=== PATIENT | male | born 1980 | race Caucasian/White ===

== ENCOUNTER 2022-12-17 12:56 | Emergency (ER) | payer SELFPAY ==
[2022-12-17] MEDS ORDERED: SEROQUEL50 MG PO (13:25)
[2022-12-17] MEDS ORDERED: SEROQUEL 1100 MG/TAB PO (13:25)
[2022-12-17 13:40] LABS: BASO # 0.05 K/mm3 (0.02-0.10); EOS # 0.09 K/mm3 (0.04-0.40); EOS % 1.4 % (0.0-4.0); HEMATOCRIT 45.8 % (42.0-52.0); HEMOGLOBIN 15.6 g/dL (13.5-18.0); MEAN CELL VOLUME 90 fl (78-100); MEAN CORPUSCULAR HEMOGLOBIN 31 pg (27-31); MEAN CORPUSCULAR HGB CONC 34 g/dL (33-37); MEAN PLATELET VOLUME 9.4 fl (7.4-10.4); MONO # 0.55 K/mm3 (0.20-0.80); NEU # 4.46 K/mm3 (1.40-6.50); PLATELET COUNT 236 K/mm3 (130-400); RED CELL DISTRIBUTION WIDTH 13.1 % (11.5-14.5); WHITE BLOOD COUNT 6.5 K/mm3 (4.8-10.8)
[2022-12-17 13:48] LABS: ALBUMIN 4.3 g/dL (3.5-5.0)
[2022-12-17 13:49] LABS: POTASSIUM 4.5 mmol/L (3.5-5.1); SODIUM 136 mmol/L (136-145)
[2022-12-17 13:50] LABS: CALCIUM 8.8 mg/dL (8.3-10.5)
[2022-12-17 13:51] LABS: GLUCOSE 135 mg/dL (75-110); TOTAL PROTEIN 7.5 g/dL (6.4-8.3)
[2022-12-17 13:52] LABS: CARBON DIOXIDE 24 mmol/L (22-29)
[2022-12-17 13:53] LABS: TOTAL BILIRUBIN 0.3 mg/dL (0.2-1.2)
[2022-12-17 13:56] LABS: AST-SGOT 23 U/L (5-34)
[2022-12-17 13:58] LABS: ALT/SGPT 20 U/L (0-55)
[2022-12-17 14:12] LABS: URINE APPEARANCE CLEAR; URINE COLOR YELLOW; URINE GLUCOSE NEGATIVE (NEGATIVE); URINE PROTEIN(semi-quant) TRACE (NEGATIVE)
[2022-12-17 14:13] LABS: URINE BILIRUBIN NEGATIVE (NEGATIVE); URINE BLOOD TRACE (NEGATIVE); URINE KETONE TRACE (NEGATIVE); URINE LEUKOCYTE ESTERASE NEGATIVE (NEGATIVE); URINE MUCUS PRESENT (NOT PRESENT); URINE NITRATE NEGATIVE (NEGATIVE); URINE UROBILINOGEN NORMAL (NORMAL); URINE WBC 0-1 /hpf (0-3)
[2022-12-17 14:17] LABS: ACETAMINOPHEN < 1 ug/mL; ALCOHOL IN-HOUSE < 10 mg/dL (<10)
[2022-12-17 18:00] VITALS: BP 124/94
== END 2022-12-17 22:50 ==
LOC: ED 12:56
PROVIDERS: Nurse Practitioner
DX: F39 Unspecified mood [affective] disorder (principal); F17.210 Nicotine dependence, cigarettes, uncomplicated; Z28.310 Unvaccinated for COVID-19